=== PATIENT | female | born 1975 | race African-American/Black ===

== ENCOUNTER 2017-12-06 08:30 | Day surgery (SDC) | payer OTHER ==
[2017-12-06 09:11] LABS: #Lymphocytes 1.3 thou/uL (1.20-3.40); #Monocytes 0.4 thou/uL (0.11-0.59); %Eosinophils 0.2 % (0.0-10.0); %Lymphocytes 12.3 % (21.0-51.0); %Monocytes 3.5 % (0.0-10.0); Hemoglobin 13.5 g/dL (12.0-16.0); Mean Corpuscular HGB CONC 32.2 g/dL (32.0-36.0); Mean Corpuscular Hemoglobin 30.1 pg (27.0-31.0); Mean Corpuscular Volume 93.3 fL (78.0-98.0); Mean Platelet Volume 7.4 fL (7.4-10.4); Platelet Count 211 thou/uL (130-400); RBC Distribution Width 13.2 % (11.5-14.5); Red Blood Cell (RBC) Count 4.49 mill/uL (4.20-5.40); White Blood Cell (WBC) Count 10.6 thou/uL (4.8-10.8)
[2017-12-06 09:19] LABS: ALT (SGPT) 17 U/L (8-55); AST (SGOT) 16 U/L (5-34); Albumin 3.4 g/dL (3.5-5.0); Alkaline Phosphatase 68 U/L (40-150); Anion Gap 14 mmol/L (10-20); BUN (Urea Nitrogen) 10 mg/dL (7.0-18.7); Bilirubin, Total 0.2 mg/dL (0.2-1.2); Calc. Creatinine Clearance 0 mL/min (70-130); Calcium 8.3 mg/dL (7.8-10.44); Carbon Dioxide 19 mmol/L (22-29); Chloride 108 mmol/L (98-107); Estimated GFR-MDRD 76; Globulin 2.4 g/dL (2.4-3.5); Glucose 119 mg/dL (70-105); Lipase 15 U/L (8-78); Potassium 3.9 mmol/L (3.5-5.1); Protein, Total 5.8 g/dL (6.0-8.3); Sodium 137 mmol/L (136-145)
[2017-12-06 09:40] LABS: PLT Morphology Comment Appears Adequate; RBC Morphology Normal
[2017-12-06 10:07] LABS: Bilirubin Negative (Negative); Blood, Urine Large (Negative); Clarity CLOUDY (Clear); Glucose, Urine (Dipstick) Negative (Negative); Leukocyte Small (Negative); Nitrite Negative (Negative); Protein, Urine (Dipstick) Trace mg/dL (Neg-Trace); Specific Gravity, Urine 1.017 (1.002-1.036); Urobilinogen 0.2 mg/dL (0.2-1.0)
[2017-12-06 10:09] LABS: Pregnancy Test - Urine (BHCG) Negative (Negative); Pregu Control Background? CLEAR/WHITE (CLR/WHITE); Pregu Control Bar Appear? YES (CONTROL BAR); Specific Gravity 1.017 (1.002-1.036)
[2017-12-06 10:10] LABS: Bacteria/HPF None Seen HPF (None Seen); Hyaline Casts/LPF 0-3 HYALINE CAST LPF (0-3 Hyaline); Pathc Cast-AUWi Flag 0.31 (0-2.49); RBC/HPF GREATER THAN 50-TNTC HPF (0-3)
--- NOTE | 2017-12-06 11:04 | CT ---
CT OF THE ABDOMEN AND PELVIS: Date: 12/06/17 PROVIDED CLINICAL HISTORY: Abdominal pain, nausea, and vomiting. FINDINGS: The visualized lung bases are free of significant opacity. The solid abdominal organs are suboptimally evaluated in the absence of IV contrast, but demonstrate an unremarkable unenhanced CT appearance. There is an appendicolith at the proximal aspect of the appendix. The remainder of the appendix appea rs dilated, measuring up to 12.0 mm. There is no significant periappendiceal fat stranding. Fluid den sity is noted within portions of the appendix. There is no bowel dilatation, free fluid, or free air apparent. No evidence for urinary tract calculi . Phleboliths are seen in the pelvis. The osseous structures demonstrate no concerning lytic or blastic lesions. 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 IMPRESSION: Findings compatible with acute appendicitis. POS: MICHAEL
[2017-12-06] MEDS ORDERED: Piperacillin/Tazobactam 3.375 GM VIAL ONE (11:46)
[2017-12-06] MEDS ORDERED: Ketorolac Tromethamine 30 MG/ML VIAL ONE (11:49)
[2017-12-06] MEDS ORDERED: PROPOFOL 200 MG/20 ML VIAL ONE (11:50)
[2017-12-06] MEDS ORDERED: Ondansetron HCl/PF 4 MG/2 ML Vial ONE (11:50)
[2017-12-06] MEDS ORDERED: Dexamethasone 20 MG/5 ML VIAL ONE (11:50)
[2017-12-06] MEDS ORDERED: Glycopyrrolate 0.2 MG/ML 5 ML SYRINGE ONE (11:50)
[2017-12-06] MEDS ORDERED: Lidocaine 1% PF 5 ML VIAL ONE (11:50)
[2017-12-06] MEDS ORDERED: Succinylcholine Chloride 20 MG/ML 10 ml SYRINGE FS ONE (11:50)
--- NOTE | 2017-12-06 13:28 | HP ---
HISTORY OF PRESENT ILLNESS: A 42-year-old black female, who lives in [place], with children. She has a 24-hour history of right lower quadrant pain, pain persistent. She was seen in the emergen cy room. White count 10, hemoglobin 13. Basic metabolic profile normal. CAT scan of abdomen and pe lvis confirming appendicitis. She has suffered anorexia, increased pain with movement, but no fever. ALLERGIES: None. SOCIAL HISTORY: Tobacco 1/2 pack per day or less. ALCOHOL: None. MEDICATIONS: None. PAST SURGICAL HISTORY: C-sections. PAST MEDICAL HISTORY: Noncontributory. REVIEW OF SYSTEMS: Ten-point noncontributory. FAMILY HISTORY: Noncontributory. PHYSICAL EXAMINATION: VITAL SIGNS: 98.5 degrees, 63, 16, 144/81, 95% saturation. HEAD, EARS, EYES, NOSE, AND THROAT: Unremarkable. LUNGS: Clear to auscultation. CARDIAC: Regular rate and rhythm without murmur, rub, or gallop. ABDOMEN: Soft, tenderness in right lower quadrant with guarding, rebound. EXTREMITIES: Unremarkable. ASSESSMENT AND PLAN: Acute appendicitis. We recommend laparoscopic video appendectomy. Risk of inf ection, bleeding, visceral injury, possible open procedure discussed, she consents.
[2017-12-06] MEDS ORDERED: Acetaminophen 1,000 MG in Premix Bag 1 BAG IVPB SCH (13:45)
[2017-12-06] MEDS ORDERED: Bupivacaine HCl 0.5%/Epinephrine 1:200,000/PF 30 ml Vial ONE (14:16)
[2017-12-06] MEDS ORDERED: Midazolam HCl 2 mg/2 ml Vial ONE (14:20)
[2017-12-06] MEDS ORDERED: Fentanyl 100 MCG/2 ML VIAL ONE (14:20)
[2017-12-06] MEDS ORDERED: Famotidine/PF 20 mg/2ml Vial ONE (14:20)
--- NOTE | 2017-12-06 18:30 | OP ---
DATE OF PROCEDURE: 12/06/2017 PREOPERATIVE DIAGNOSIS: Acute appendicitis. POSTOPERATIVE DIAGNOSIS: Acute appendicitis with cloudy urine. Urine culture and sensitivity sent f rom a [facility] catheter. SURGEON: Charles Hess M.D. ANESTHESIA: General. Local 0.5% Marcaine with epinephrine. PROCEDURE: Laparoscopic video appendectomy. PROCEDURE IN DETAIL: The patient taken to the operating room under general anesthesia, abdomen was p repared with ChloraPrep, draped in routine fashion. Local anesthetic infiltrated into the skin and s ubcutaneous tissue at each port site. Infraumbilical incision made. Pneumoperitoneum to 15 mmHg obt ained with the Veress needle, replacing it with a 5 port and video laparoscope inserted. Right subco stal incision made and a 5 port placed. Suprapubic incision made and a 12 port placed. Appendix was acutely inflamed. Mesoappendix taken down with the LigaSure. The stump of the appendix divided wit h Endo-MARIANNE blue load stapler. Stapled cecal stump. Hemostasis gained with clips. Good hemostasis o btained as the appendix were placed in Endobag and removed. Irrigant and pneumoperitoneum evacuated after suprapubic fascia approximated with 0 Vicryl GraNee needle. Skin incisions approximated with i nterrupted subdermal 4-0 Monocryl. Patient had cloudy urine and urine culture sent from the [facility].
== END 2017-12-06 17:20 | disposition home or self-care (01) ==
LOC: ERS 08:30 → SDC 12:01
PROVIDERS: ATTEND Specialist
PROC: 0DTJ4ZZ Resection of Appendix, Percutaneous Endoscopic Approach (ICD-10-PCS; principal; 2017-12-06)
DX: K35.80 Unspecified acute appendicitis (principal); F17.200 Nicotine dependence, unspecified, uncomplicated
CPT/HCPCS: 36415; 74176; 80053; 81003; 81015; 81025; 83690; 85025; 87086; 88304; 96361; 96374; 96375; J0131; J0670; J1100; J1885; J2001; J2250; J2270; J2405; J2543; J2704; J3010; S0028

== ENCOUNTER 2018-04-11 17:28 | Emergency (ER) | payer OTHER ==
[2018-04-11 18:14] LABS: Bilirubin Negative (Negative); Blood, Urine Negative (Negative); Clarity CLOUDY (Clear); Glucose, Urine (Dipstick) Negative (Negative); Leukocyte Negative (Negative); Nitrite Negative (Negative); Protein, Urine (Dipstick) Negative (Neg-Trace); Specific Gravity, Urine 1.022 (1.002-1.036); Urobilinogen 0.2 mg/dL (0.2-1.0)
[2018-04-11 19:13] LABS: #Basophils 0.1 thou/uL (0.0-0.2); #Eosinphils 0.2 thou/uL (0.0-0.7); #Lymphocytes 3.4 thou/uL (1.20-3.40); #Monocytes 0.5 thou/uL (0.11-0.59); #Neutrophils 3.3 thou/uL (1.40-6.50); %Basophils 1.3 % (0.0-1.0); %Eosinophils 3.2 % (0.0-10.0); %Lymphocytes 45.5 % (21.0-51.0); %Monocytes 6.1 % (0.0-10.0); %Neutrophils 43.9 % (42.0-75.0); Hemoglobin 13.1 g/dL (12.0-16.0); Mean Corpuscular HGB CONC 32.3 g/dL (32.0-36.0); Mean Corpuscular Volume 95.8 fL (78.0-98.0); Platelet Count 337 thou/uL (130-400); RBC Distribution Width 13.9 % (11.5-14.5); Red Blood Cell (RBC) Count 4.24 mill/uL (4.20-5.40); White Blood Cell (WBC) Count 7.5 thou/uL (4.8-10.8)
[2018-04-11 19:34] LABS: ALT (SGPT) 16 U/L (8-55); AST (SGOT) 18 U/L (5-34); Albumin 3.8 g/dL (3.5-5.0); Alkaline Phosphatase 68 U/L (40-150); Anion Gap 10 mmol/L (10-20); BUN (Urea Nitrogen) 11 mg/dL (7.0-18.7); Bilirubin, Total Less than 0.2 mg/dL (0.2-1.2); Calc. Creatinine Clearance 0 mL/min (70-130); Calcium 9.3 mg/dL (7.8-10.44); Carbon Dioxide 28 mmol/L (22-29); Chloride 107 mmol/L (98-107); Estimated GFR-MDRD 79; Globulin 2.8 g/dL (2.4-3.5); Glucose 118 mg/dL (70-105); Potassium 3.9 mmol/L (3.5-5.1); Protein, Total 6.6 g/dL (6.0-8.3); Sodium 141 mmol/L (136-145)
--- NOTE | 2018-04-11 19:45 | RAD ---
CHEST ONE VIEW: 04/11/18 INDICATION: Cough, vomiting, abdominal pain and headache. COMPARISON: Prior exam dated 02/15/11. IMPRESSION: No acute cardiopulmonary abnormality is evident. The examination is not appreciably changed from the comparison study. POS: MICHAEL
[2018-04-11] MEDS ORDERED: Lidocaine Viscous Sol 2% 15 ml UD Cup ONE (20:17)
[2018-04-11] MEDS ORDERED: Mag-Al 1200 mg/1200 mg/30 ML UDCUP ONE (20:17)
[2018-04-11] MEDS ORDERED: Ondansetron ODT 4 MG TAB ONE (20:17)
== END 2018-04-11 21:41 | disposition home or self-care (01) ==
LOC: ERS 17:28
DX: R10.13 Epigastric pain (principal); R11.2 Nausea with vomiting, unspecified; R19.7 Diarrhea, unspecified; F31.9 Bipolar disorder, unspecified; F41.9 Anxiety disorder, unspecified; F17.210 Nicotine dependence, cigarettes, uncomplicated
CPT/HCPCS: 36415; 71045; 80053; 81003; 85025; Q0162

== ENCOUNTER 2018-11-02 10:43 | Outpatient (CLI) | payer OTHER | END 2018-11-02 10:44 | disposition home or self-care (01) | LOC: DTY/OP 10:43 | PROVIDERS: ATTEND Surgery | DX: E66.01 Morbid (severe) obesity due to excess calories (principal) | CPT/HCPCS: 97802 ==

== ENCOUNTER 2018-11-10 13:12 | Emergency (ER) | payer OTHER ==
[~2018-11-10 13:12] MED LIST: ISOVUE-370 76%-LOCM 1 ML ONE
[2018-11-10 14:43] LABS: #Basophils 0.1 thou/uL (0.0-0.2); #Eosinphils 0.2 thou/uL (0.0-0.7); #Lymphocytes 2.8 thou/uL (1.20-3.40); #Monocytes 0.5 thou/uL (0.11-0.59); #Neutrophils 3.3 thou/uL (1.40-6.50); %Basophils 0.7 % (0.0-1.0); %Eosinophils 3.5 % (0.0-10.0); %Lymphocytes 40.9 % (21.0-51.0); %Monocytes 7.3 % (0.0-10.0); %Neutrophils 47.6 % (42.0-75.0); Hemoglobin 12.5 g/dL (12.0-16.0); Mean Corpuscular HGB CONC 33.7 g/dL (32.0-36.0); Mean Corpuscular Hemoglobin 32.2 pg (27.0-31.0); Mean Corpuscular Volume 95.7 fL (78.0-98.0); Mean Platelet Volume 7.5 fL (7.4-10.4); Platelet Count 298 thou/uL (130-400); RBC Distribution Width 13.5 % (11.5-14.5); Red Blood Cell (RBC) Count 3.89 mill/uL (4.20-5.40); White Blood Cell (WBC) Count 6.9 thou/uL (4.8-10.8)
[2018-11-10 15:04] LABS: Anion Gap 14 mmol/L (10-20); BUN (Urea Nitrogen) 11 mg/dL (7.0-18.7); Calc. Creatinine Clearance 0 mL/min (70-130); Calcium 8.9 mg/dL (7.8-10.44); Carbon Dioxide 22 mmol/L (22-29); Chloride 106 mmol/L (98-107); Estimated GFR-MDRD 77; Glucose 155 mg/dL (70-105); Potassium 5.2 mmol/L (3.5-5.1); Sodium 137 mmol/L (136-145)
[2018-11-10 15:08] LABS: BHCG - Serum Negative (NEGATIVE); Pregs Control Bar Appear? YES (CONTROL BAR)
[2018-11-10 15:09] LABS: Pregs Control Background? CLEAR/WHITE (CLR/WHITE)
--- NOTE | 2018-11-10 16:10 | CT ---
CT maxillofacial with contrast: 11/10/2018 HISTORY: 43-year-old female with right-sided facial pain, ear pain, and right hearing loss FINDINGS: There is soft tissue thickening of the right external auditory canal with soft tissue enhancement, re sulting in narrowing of the canal. There is opacification of many of the right mastoid air cells, and some of the left mastoid air cells. This was not a temporal bone CT, and therefore detailed evalu ation of temporal bone structures is not possible, but the bilateral middle ear cavities and bilateral mastoid antra appear to be grossly clear. The paranasal sinuses are clear. The orbits are clear. No destructive osseous lesion. No abscess in t he soft tissues of the face. Thickened adenoids and lingual tonsil. Normal dna sequencing associate and parapharyngeal spaces. Symmetrically bilaterally enlarged level 2 lymph nodes. IMPRESSION: 1. Right mastoid effusion. 2. Evidence for Right otitis externa. 3. Hyperplasia of Waldeyer's ring and reactive level 2 cervical lymphadenopathy.
--- NOTE | 2018-11-10 16:13 | CT ---
CT neck with contrast: HISTORY: 43-year-old female with rash and right neck pain FINDINGS: Symmetrically mildly enlarged bilateral level 2 reactive lymph nodes. Hyperplasia of Waldeyer's ring. No evidence of abscess. Unremarkable larynx. Enlarged left retropharyngeal lymph node at the C2 level, a typical location. No destructive osseous lesion or abscess. No retropharyngeal abscess. IMPRESSION: 1. Hyperplasia of Waldeyer's ring and mild reactive lymphadenopathy. 2. No abscess or discrete tumor identified.
== END 2018-11-10 16:53 | disposition home or self-care (01) ==
LOC: ERS 13:12
DX: H60.91 Unspecified otitis externa, right ear (principal); F20.9 Schizophrenia, unspecified; F31.9 Bipolar disorder, unspecified; F41.9 Anxiety disorder, unspecified; F17.210 Nicotine dependence, cigarettes, uncomplicated; Z79.899 Other long term (current) drug therapy
CPT/HCPCS: 70487; 70491; 80048; 84703; 85025

== ENCOUNTER 2018-12-28 09:48 | Outpatient (CLI) | payer OTHER ==
--- NOTE | 2018-12-28 10:02 | RAD ---
XR Chest Pa Lat @ [facility] HISTORY: Dyspnea COMPARISON: 04/11/2018 FINDINGS: The heart size is normal. The lungs are well expanded without focal areas of consolidation, pneumothorax or pleural effusions. IMPRESSION: No radiographic evidence of acute cardiopulmonary process.
== END 2018-12-28 09:49 | disposition home or self-care (01) ==
LOC: RAD 09:48
PROVIDERS: ATTEND Internal Medicine
DX: R06.00 Dyspnea, unspecified (principal)
CPT/HCPCS: 71046

== ENCOUNTER 2019-01-30 19:30 | Outpatient (CLI) | payer OTHER | END 2019-01-30 19:31 | disposition home or self-care (01) | LOC: SLEEPLAB 19:30 | PROVIDERS: ATTEND Internal Medicine | DX: G47.33 Obstructive sleep apnea (adult) (pediatric) (principal); R35.1 Nocturia; F31.9 Bipolar disorder, unspecified; R51 Headache | CPT/HCPCS: 95810 ==

== ENCOUNTER 2020-06-15 16:36 | Emergency (ER) | payer OTHER ==
[2020-06-16 02:48] LABS: SARS-CoV-2 MS2 Positive; SARS-CoV-2 N Gene Positive; SARS-CoV-2 S Gene Positive; SARS-CoV-2 by NAA DETECTED (NotDetected); SARS-CoV-2 orf1ab Positive
== END 2020-06-15 17:25 | disposition home or self-care (01) ==
LOC: ERS 16:36
DX: U07.1 COVID-19 (principal); R43.0 Anosmia
CPT/HCPCS: 87635; 99283; U0003

== ENCOUNTER 2020-08-07 03:25 | Emergency (ER) | payer OTHER ==
[2020-08-07] MEDS ORDERED: Acetaminophen 500 MG TAB ONE (03:35)
== END 2020-08-07 04:00 ==
LOC: ERS 03:25
DX: S43.401A Unspecified sprain of right shoulder joint, initial encounter (principal); X50.9XXA Other and unspecified overexertion or strenuous movements or postures, initial encounter

== ENCOUNTER 2021-05-26 11:52 | Emergency (ER) | payer OTHER | END 2021-05-26 15:24 | disposition home or self-care (01) | LOC: ERS 11:52 | DX: H60.502 Unspecified acute noninfective otitis externa, left ear (principal); F17.210 Nicotine dependence, cigarettes, uncomplicated | CPT/HCPCS: 99282 ==

== ENCOUNTER 2022-05-02 06:51 | Emergency (ER) | payer OTHER | END 2022-05-02 07:55 | disposition left against medical advice (07) | LOC: ERS 06:51 | DX: Z53.21 Procedure and treatment not carried out due to patient leaving prior to being seen by health care provider (principal) ==

== ENCOUNTER 2022-05-07 15:04 | Emergency (ER) | payer OTHER ==
[2022-05-07] MEDS ORDERED: Ketorolac Tromethamine 30 MG/ML VIAL ONE (15:50)
[2022-05-07] MEDS ORDERED: Bupivacaine 0.5% 10 ML VIAL ONE (15:50)
== END 2022-05-07 16:30 | disposition home or self-care (01) ==
LOC: ERS 15:04
DX: K02.9 Dental caries, unspecified (principal)
CPT/HCPCS: 64400; 96372; J1885; J3490

== ENCOUNTER 2022-07-24 17:01 | Emergency (ER) | payer OTHER ==
[2022-07-24] MEDS ORDERED: Ibuprofen 800 MG TAB ONE (20:06)
== END 2022-07-24 20:09 | disposition home or self-care (01) ==
LOC: ERS 17:01
DX: K04.7 Periapical abscess without sinus (principal)
CPT/HCPCS: 99282

== ENCOUNTER 2024-01-03 14:18 | Emergency (ER) | payer OTHER ==
[2024-01-03] MEDS ORDERED: Ketorolac Tromethamine 30 MG (1 mL) VIAL ONE (17:32)
[2024-01-03] MEDS ORDERED: Lidocaine 4% Patch ONE (17:32)
== END 2024-01-03 20:09 | disposition home or self-care (01) ==
LOC: ERS 14:18
DX: M25.511 Pain in right shoulder (principal)
CPT/HCPCS: 96372; J1885